=== PATIENT | male | born 1965 | race Caucasian/White ===

== ENCOUNTER 2020-05-29 17:55 | Emergency (ER) | payer MEDICARE, OTHER ==
[2020-05-29 19:42] LABS: BUN/CREATININE RATIO 15 (0-10)
[2020-05-29 19:52] LABS: HEMOGLOBIN 14.5 gm/dl (14.0-17.5); RED BLOOD COUNT 4.67 M/UL (4.20-5.50); WHITE BLOOD COUNT 7.6 K/UL (4.5-11.0)
[2020-05-29] MEDS ORDERED: IBU800 MG PO (22:05)
== END 2020-05-29 22:50 | disposition home or self-care (01) ==
LOC: ER1 17:55
PROVIDERS: Physician Assistant
DX: S83.521A Sprain of posterior cruciate ligament of right knee, initial encounter (principal); M25.461 Effusion, right knee; I11.0 Hypertensive heart disease with heart failure; I50.9 Heart failure, unspecified; F17.210 Nicotine dependence, cigarettes, uncomplicated; X58.XXXA Exposure to other specified factors, initial encounter
CPT/HCPCS: 73562; 73700; 80053; 83605; 83880; 85025; 85379; 86140; 99284; J1885